=== PATIENT | female | born 1980 | race African-American/Black ===

== ENCOUNTER 2023-01-28 13:33 | Outpatient (CLI) | payer OTHER, SELFPAY ==
--- NOTE | ~2023-01-28 | XR_ITS ---
XR chest 2V DATE: 01/28/2023 14:39 INDICATION: Shortness of breath TECHNIQUE: PA and lateral views COMPARISON: None FINDINGS: Normal heart size. No hilar or mediastinal enlargement. No pulmonary infiltrate or consolid ation, pleural effusion or pulmonary vascular congestion or pneumothorax is detected. Included skeletal structures are unremarkable. IMPRESSION: Negative Reviewed, dictated and finalized at location B. [facility] IMPRESSION: Negative
--- NOTE | 2023-01-28 16:46 | WPDPFTINT ---
PFT Procedure Performed PFT Procedure Performed Spirometry with Pre/Post Bronchodilator Plethysmography (Lung Vol) Diffusing Cap (DLCO) Flow Vol Loop PFT Interpretation This is a pulmonary function test with pre and post-bronchodilator spirometry, plethysmography and diffusing capacity. The test was performed and results interpreted in accordance with the 2019 and 2005 ATS/ERS Task Force guidelines respectively using the Global Lung Function Initiative-2012 reference equations. Patient demonstrated good effort and cooperation. Reproducibility criteria were met. The quality of the pre bronchodilator spirometry maneuver was Grade A and post bronchodilator spirometry maneuver was Grade A. Findings: Spirometry: The contour the expiratory flow tracing is saw-toothed in 1 of 3 pre bronchodilator efforts, has an expiratory plateau or knee pattern in 1 of 3 pre bronchodilator efforts and is normal in 1 of 3 pre bronchodilator efforts. The contour is notched in all 3 post bronchodilator efforts. The pre bronchodilator FVC is 2.52 L, 81% predicted. The pre bronchodilator FEV1 is 1.92 L, 76% predicted. The pre bronchodilator FEV1: FVC ratio 76%. The post bronchodilator FVC is 2.71 L, representing an 8% increase. The post bronchodilator FEV1: FV ratio is 1.80 L, representing a 6% decrease. The post bronchodilator FEV1: FVC ratio 66%. Plethysmography: The total lung capacity is 3.70 L, 83% predicted. The functional residual capacity is 1.61 L, 62% predicted. The residual volume is 1.18 L, 75% predicted. Diffusing capacity: The diffusing capacity unadjusted for hemoglobin and carboxyhemoglobin is 16.5, 70% predicted. Diffusing capacity adjusted for alveolar volume is 4.83, 103% predicted. Impression: Collectively the contour of the expiratory flow tracing ranges from normal, a saw-toothed pattern, a notched pattern, and a knee pattern. The sawtooth pattern is usually generated either by air flow disturbances in the upper airway or from tremors of the respiratory muscles. This has been associated with sleep apnea, obesity, snorers without obstructive sleep apnea, upper airway injury, upper airway stenosis, tracheobronchomalacia, neuromuscular disorders with bulbar involvement, burn injury of the upper airway, diaphragmatic myoclonus, and herpes zoster of abdominal muscles. The notched pattern has been described with coughing or tracheobronchomalacia. The knee pattern can be a normal variant or pathologic and has been attributed to a choke point section of the bronchial tree. The normal variant is more common in younger female patients, decreases with age and is more pronounced in the post bronchodilator efforts. The pattern has also been described with kyphosis, kyphoscoliosis, central obstructing mass, and post lung transplantation. Clinical correlation is recommended. Otherwise, the spirometry is normal with no evidence of an obstructive abnormality. The lung volumes are normal. The diffusing capacity unadjusted for hemoglobin and carboxyhemoglobin is mildly decreased and normalizes when adjusted for alveolar volume. There are no prior studies for comparison
== END 2023-01-28 13:34 | disposition home or self-care (01) ==
PROVIDERS: Visit Provider Nurse Practitioner Family
DX: R06.02 Shortness of breath (principal); J45.909 Unspecified asthma, uncomplicated
CPT/HCPCS: 71046; 94060; 94726; 94729